=== PATIENT | male | born 1980 | race Caucasian/White ===

== ENCOUNTER 2018-04-04 07:45 | Day surgery (SDC) | payer MEDICARE ==
[~2018-04-04] VITALS: Ht 167.6 cm; Wt 71.8 kg
--- NOTE | ~2018-04-04 | OP ---
PATIENT NAME: ARY JANE MEDICAL RECORD: [id number] :80 LOCATION:[facility] ADMISSION DATE: SURGEON: LINDA GOODEN MD DATE OF OPERATION: 04/04/2018 PREOPERATIVE NOTE: Mr. Jane is a 37-year-old white male patient with end-stage renal disease, on chronic hemodialysis with a tunneled dialysis catheter. He needs long-term access and he is brought to the operating room at this time to attempt creation of a left upper extremity AV fistula. He was referred by Dr. Castro. SURGEON: Linda Gooden MD OPERATION: Creation of a left upper extremity brachiocephalic arteriovenous fistula. ANESTHESIA: Regional nerve block plus general by LMA per BOOKS SALESPERSON. PROCEDURE: Under anesthesia, the patient's left arm and hand were prepped and draped in a sterile manner. I applied a Draper drain as a proximal venous tourniquet and then applied nitroglycerin ointment to the intact skin of his arm and forearm. I examined him with Duplex ultrasound and noted a satisfactory cephalic vein and median cubital vein. I then made a transverse incision just below the antecubital space and exposed the distal brachial artery and the median cubital vein and the confluence with the median antebrachial vein and the median cubital vein draining to the basilic. These vessels were controlled with 3-0 Vicryl ties and clips. The drainage to the basilic vein as well as the cephalic vein was maintained. I divided the deep or perforating communicating vein. The vein was distally transected and flushed with heparinized saline and hydrostatically dilated with heparinized saline and topical papaverine. The artery was exposed and controlled proximally and distally with Silastic loops. It was opened and flushed proximally and distally with heparinized saline and treated with topical papaverine. A obvp-lu-[id number] anastomosis was performed with running 7-0 Prolene and when completed, the anastomosis was converted to an end-to-side by closing the distal vein with a Hemoclip. Excellent flow was established immediately within the fistula and the suture line was hemostatic. The wound was irrigated gently with saline and then closed with interrupted inverted 3-0 Vicryl and running intracuticular 4-0 Monocryl and Dermabond glue. It was dressed with half-inch Steri-Strip, Maxorb Ag, Tegaderm and Cavilon skin prep. Blood loss was about 5 cc. None replaced. All sponges, instruments and needles were accounted for. No drain was used. TRANSINT:[id number] Voice Confirmation ID: [id number] DOCUMENT ID: [id number] LINDA GOODEN MD at 0847 CC: ALICIA CASTRO MD [id number] DICTATION DATE: 04/04/18 1547 WOOD HEEL BACK LINER: 04/04/18 1603 [facility] 04/04/18 [id number] [place] [address]
[2018-04-04 07:59] LABS: BASOPHILS 0.4 % (0-2); EOSINOPHILS 9.4 % (0-7); HEMATOCRIT 30.3 % (42.0-54.0); HEMOGLOBIN 10.6 g/dL (13.5-17.5); IMMATURE GRANULOCYTES 0.1 % (0-5); LYMPHOCYTES 22.8 % (15-50); MCH 28.2 pg (26.0-34.0); MCV 80.6 fL (80.0-100.0); MEAN PLATELET VOLUME 8.9 fL (7.4-10.4); MONOCYTES 5.7 % (2-11); NEUTROPHILS 61.6 % (40-80); PLATELET COUNT 111 10x3/uL (130-400); RBC 3.76 10x6/uL (4.20-6.10); WBC 6.7 10x3/uL (4.8-10.8)
[2018-04-04 08:12] LABS: APTT 27.7 SECONDS (22.8-39.4); INR 0.95 (0.85-1.17); PROTIME 12.3 SECONDS (11.6-15.0)
[2018-04-04 08:14] LABS: ANION GAP 12.3 mmol/L (8-16); CARBON DIOXIDE 27.4 mmol/L (21.0-32.0); CREATININE - SERUM 8.2 mg/dL (0.6-1.3); POTASSIUM - SERUM 3.7 mmol/L (3.5-5.1)
[2018-04-04] MEDS ORDERED: NORVASC5 MG PO (08:52)
[2018-04-04] MEDS ORDERED: PHOSLO667 MG PO (08:59)
[2018-04-04 09:07] VITALS: BP 156/97; Ht 167.6 cm; Wt 71.8 kg
[2018-04-04] MEDS ORDERED: HYDROCODON-ACE1 EAC7 PO (15:36)
== END 2018-04-04 18:05 | disposition home or self-care (01) ==
LOC: D.OPS 07:45
PROVIDERS: Surgery
DX: I12.0 Hypertensive chronic kidney disease with stage 5 chronic kidney disease or end stage renal disease (principal); N18.6 End stage renal disease; Z99.2 Dependence on renal dialysis; Z01.812 Encounter for preprocedural laboratory examination

== ENCOUNTER 2018-07-04 06:03 | Day surgery (SDC) | payer MEDICARE ==
[~2018-07-04] VITALS: Ht 167.6 cm; Wt 72.6 kg
--- NOTE | ~2018-07-04 | OP ---
PATIENT NAME: ARY JANE MEDICAL RECORD: [id number] :80 LOCATION:[facility] ADMISSION DATE: SURGEON: LINDA GOODEN MD DATE OF OPERATION: 07/04/2018 REFERRED BY: Alicia Castro MD PREOPERATIVE DIAGNOSIS: Mechanical complication of surgically created arterial venous fistula on the left arm with slow maturation due to venous outflow via both large basilic and large cephalic veins. POSTOPERATIVE DIAGNOSIS: Mechanical complication of surgically created arterial venous fistula on the left arm with slow maturation due to venous outflow via both large basilic and large cephalic veins. OPERATION PERFORMED: Ligation of basilic vein outflow from left arm proximal radial to median cubital AV fistula. SURGEON: Linda Gooden MD ANESTHESIA: General with LMA per LINE MAINTAINER. PREOPERATIVE NOTE: Mr. Jane is a very pleasant 38-year-old white male patient with hypertension and renal failure, who has an excellent left proximal radial to median cephalic AV fistula, but his problem is that he has outflow via both large cephalic and also a large basilic vein. In order to hasten maturation, he is brought to the operating room at this time to ligate the basilic vein outflow. Under general anesthesia, the patient was prepped and draped in a sterile manner. He was examined under the ultrasound. A transverse incision was made above the level of the arteriovenous anastomosis and the vein directing flow to the basilic system was exposed and doubly ligated with 2-0 Vicryl and a single medium Hemoclip. The wound was then infiltrated with 0.25% Marcaine without epinephrine and closed with running intracuticular 4-0 Monocryl and Dermabond glue. It was dressed with Maxorb Ag, Tegaderm, and Cavilon skin prep. The patient awakened, was taken to the recovery room. The patient should go home later today and follow up with me in my office in about 2 weeks. I expect we should be able to start accessing his fistula very soon after that. There was no blood loss during the procedure. Sponges, instruments, and needles were accounted for. No drain was used and no surgical specimen submitted for histopathology. TRANSINT:[id number] Voice Confirmation ID: [id number] DOCUMENT ID: [id number] OPERATIVE REPORT [id number] ARY JANE LINDA GOODEN MD at 1534 CC: ALICIA CASTRO MD [id number] DICTATION DATE: 07/04/18900 SEWING MACHINE OPERATOR SEMIAUTOMATIC: 07/04/18919 [facility] SDC 07/04/18 [id number] [place] [address]
[~2018-07-04 06:03] MED LIST: HYDROCODON-ACE1 EAC7 PO; NORVASC5 MG PO; PHOSLO667 MG PO
[2018-07-04 06:23] LABS: BASOPHILS 0.5 % (0-2); EOSINOPHILS 5.2 % (0-7); HEMATOCRIT 36.1 % (42.0-54.0); HEMOGLOBIN 12.3 g/dL (13.5-17.5); IMMATURE GRANULOCYTES 0.1 % (0-5); LYMPHOCYTES 19.6 % (15-50); MCHC 34.1 g/dL (31.0-37.0); MCV 85.1 fL (80.0-100.0); MEAN PLATELET VOLUME 8.8 fL (7.4-10.4); MONOCYTES 8.9 % (2-11); NEUTROPHILS 65.7 % (40-80); PLATELET COUNT 147 10x3/uL (130-400); RBC 4.24 10x6/uL (4.20-6.10); RDW 15.3 % (11.5-14.5); WBC 7.7 10x3/uL (4.8-10.8)
[2018-07-04 06:37] LABS: ANION GAP 16.7 mmol/L (8-16); CALCIUM 9.6 mg/dL (8.5-10.1); CARBON DIOXIDE 27.5 mmol/L (21.0-32.0); CREATININE - SERUM 9.4 mg/dL (0.6-1.3); POTASSIUM - SERUM 4.2 mmol/L (3.5-5.1)
[2018-07-04 06:48] LABS: APTT 27.9 SECONDS (22.8-39.4); PROTIME 12.8 SECONDS (11.6-15.0)
[2018-07-04 07:11] VITALS: Ht 167.6 cm; Wt 72.6 kg
== END 2018-07-04 10:35 | disposition home or self-care (01) ==
LOC: D.OPS 06:03
PROVIDERS: Surgery
DX: T82.590A Other mechanical complication of surgically created arteriovenous fistula, initial encounter (principal); I12.0 Hypertensive chronic kidney disease with stage 5 chronic kidney disease or end stage renal disease; N18.6 End stage renal disease; Z99.2 Dependence on renal dialysis; Z01.812 Encounter for preprocedural laboratory examination